=== PATIENT | male | born 1995 | race Caucasian/White ===

== ENCOUNTER 2017-04-05 05:16 | Emergency (ER) | payer MEDICAID ==
[~2017-04-05] VITALS: Ht 165.1 cm; Wt 99.3 kg
[2017-04-05 05:30] VITALS: BP 144/90
[2017-04-05] MEDS ORDERED: methylPREDNISolone SOD SUCC 125 MG/2 ML VL IM ONE (07:30)
[2017-04-05] MEDS ORDERED: diphenhdrAMINE HCL 50 MG/1 ML VL IM ONE (07:30)
== END 2017-04-05 07:46 | disposition home or self-care (01) ==
LOC: ER 05:18
DX: L50.0 Allergic urticaria (principal); T36.0X5A Adverse effect of penicillins, initial encounter; Y92.89 Other specified places as the place of occurrence of the external cause
CPT/HCPCS: 96372; 99283; J1200; J2930

== ENCOUNTER 2017-10-20 07:30 | Emergency (ER) | payer MEDICAID ==
[~2017-10-20] VITALS: Ht 167.6 cm; Wt 102.1 kg
[2017-10-20 07:42] VITALS: BP 156/99
[2017-10-20] MEDS ORDERED: KETOROLAC TROMETH 30 MG/ML 1ML VIAL IM ONE (08:45)
[2017-10-20] MEDS ORDERED: ACETAMINOPHEN 500 MG TAB PO ONE (08:45)
== END 2017-10-20 09:12 | disposition home or self-care (01) ==
LOC: ER 07:34
DX: M54.5 Low back pain (principal); J45.909 Unspecified asthma, uncomplicated; Z88.0 Allergy status to penicillin
CPT/HCPCS: 72100; 96372; 99284; J1885

== ENCOUNTER 2023-01-17 17:53 | Emergency (ER) | payer MEDICAID ==
[~2023-01-17] VITALS: Ht 165.1 cm; Wt 106.5 kg
[2023-01-17] MEDS ORDERED: TETANUS-DIPTH-ACEL PERTUSSIS 0.5ML SYR Tdap IM ONE (19:15)
[2023-01-17] MEDS ORDERED: NEOMYCIN-BACITRACIN-POLYM UNITDOSE PKG TOP OINT TOP ONE (19:15)
[2023-01-17] MEDS ORDERED: IBUP1TAB5 PO (20:27)
[2023-01-17] MEDS ORDERED: DOXY-346 PO (20:27)
[2023-01-17] MEDS ORDERED: MUPI2OIN2 EX (20:27)
[2023-01-17] MEDS ORDERED: MECLIZINE HCL 25 MG TAB PO ONE (20:30)
[2023-01-17] MEDS ORDERED: ONDANSETRON ODT 4 MG TAB PO ONE (20:30)
[2023-01-17] MEDS ORDERED: HYDROcodone-ACET 5/325MG TAB PO ONE (20:30)
[2023-01-17 21:07] VITALS: BP 146/91; PULSE 89; RESP 18; TEMP 98.7; O2SAT 97
== END 2023-01-17 21:11 | disposition home or self-care (01) ==
LOC: ER 17:53
DX: S00.03XA Contusion of scalp, initial encounter (principal); S80.212A Abrasion, left knee, initial encounter; J45.909 Unspecified asthma, uncomplicated; W22.8XXA Striking against or struck by other objects, initial encounter; Y93.89 Activity, other specified; Y92.89 Other specified places as the place of occurrence of the external cause; Y99.8 Other external cause status
CPT/HCPCS: 70450; 90471; 90715